=== PATIENT | female | born 1970 | race Caucasian/White ===

== ENCOUNTER 2020-04-20 17:06 | Emergency (ER) | payer BC, OTHER ==
[~2020-04-20] VITALS: Ht 165.1 cm; Wt 83.6 kg
[2020-04-20] MEDS ORDERED: METO1TAB7 (17:41)
[2020-04-20] MEDS ORDERED: JANU50TA8 (17:41)
[2020-04-20] MEDS ORDERED: LISI-538 (17:42)
[2020-04-20] MEDS ORDERED: TOPI50TA9 (17:42)
[2020-04-20] MEDS ORDERED: BUPR150T5 (17:42)
[2020-04-20] MEDS ORDERED: SERT25TA21 (17:42)
[2020-04-20] MEDS ORDERED: ONDANSETRON 4MG/2ML VIAL IV ONE (17:45)
[2020-04-20] MEDS ORDERED: MORPHINE 2 MG/ML 1ML VIAL (J2270) IV PRN (17:45)
[2020-04-20 17:53] LABS: BASO % 0.2 % (0.0-1.0); EOS # 0.1 10^3/uL (0.0-0.5); EOS % 1.2 % (0.0-3.0); HEMATOCRIT 39.7 % (36.0-47.0); HEMOGLOBIN 12.7 g/dl (12.0-15.5); LYMPH # 0.6 10^3/uL (1.5-5.0); LYMPH % 7.2 % (24.0-44.0); MEAN CORPUSCULAR HEMOGLOBIN 29.1 pg (27.0-33.0); MEAN CORPUSCULAR VOLUME 91.1 fl (80.0-96.0); MONO # 0.4 10^3/uL (0.0-0.8); MONO % 4.8 % (0.0-5.0); NEUTROPHILS # 7.6 10^3/uL (1.5-8.5); NEUTROPHILS % 85.8 % (36.0-66.0); PLATELET COUNT, AUTOMATED 286 10^3/uL (150-450); RED BLOOD COUNT 4.36 10^6/uL (4.00-5.40); WHITE BLOOD COUNT 8.9 10^3/uL (4.0-10.0)
[2020-04-20] MEDS ORDERED: ISOVUE-370 76% 100ML VIAL As Ordered ONE (18:00)
[2020-04-20] MEDS ORDERED: METOCLOPRAMIDE INJ 10MG/2ML VIAL (J2765 PER 1) IV ONE (18:45)
[2020-04-20] MEDS ORDERED: KETOROLAC 30 MG/ML 1ML VIAL IV ONE (19:00)
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
[2020-04-20] MEDS ORDERED: METHOCARBAMOL 1,000 MG/10 ML VIAL (J2800) IV ONE (19:30)
[2020-04-20] MEDS ORDERED: ROBA750T4 PO (19:35)
[2020-04-20 19:41] LABS: APPEARANCE, URINE HAZY (CLEAR); BACTERIA, URINE AUTO NEGATIVE (NEGATIVE); BILIRUBIN, URINE AUTO NEGATIVE (NEGATIVE); BLOOD, URINE BLOOD 1+ (NEGATIVE); COLOR, URINE YELLOW (YELLOW); GLUCOSE, URINE (UA) AUTO NEGATIVE (NEGATIVE); KETONE, URINE AUTO TRACE mg/dL (NEGATIVE); LEUKOCYTE ESTERASE, URINE AUTO NEGATIVE (NEGATIVE); NITRITE, URINE AUTO NEGATIVE (NEGATIVE); PROTEIN, URINE AUTO NEGATIVE (NEGATIVE); RBC, URINE AUTO 0 /HPF (0-3); SPECIFIC GRAVITY URINE AUTO 1.039 (1.002-1.035); SQUAMOUS EPITHELIAL CELL UR AU 1 /HPF (0-6); WBC, URINE AUTO 0 /HPF (0-3)
[2020-04-20 20:50] VITALS: BP 153/83
== END 2020-04-20 20:52 | disposition home or self-care (01) ==
LOC: M ED 17:06 → EDBD 17:06 → M ED 20:52
DX: M62.830 Muscle spasm of back (principal); S69.91XA Unspecified injury of right wrist, hand and finger(s), initial encounter; S32.010A Wedge compression fracture of first lumbar vertebra, initial encounter for closed fracture; V48.5XXA Car driver injured in noncollision transport accident in traffic accident, initial encounter; E11.9 Type 2 diabetes mellitus without complications; I10 Essential (primary) hypertension; M50.30 Other cervical disc degeneration, unspecified cervical region; R93.7 Abnormal findings on diagnostic imaging of other parts of musculoskeletal system; Z88.2 Allergy status to sulfonamides; Z88.6 Allergy status to analgesic agent; Z91.040 Latex allergy status; Z79.899 Other long term (current) drug therapy
CPT/HCPCS: 70450; 71260; 72125; 74177; 80047; 81001; 84702; 85025; 86850; 86900; 86901; 96374; 96375; 99284; J1885; J2270; J2405; J2765; J2800; Q9967

== ENCOUNTER → 2020-11-13 | Outpatient (CLI) | payer OTHER, BC ==
[~2020-11-13] MED LIST: BUPR150T5; JANU50TA8 PO; LINZ72CA PO; LISI20TA33; METO1TAB7 PO; MULT1TAB42 PO; OYST500C PO; ROBA750T4 PO; SERT25TA21; TOPI50TA9 PO; VITA500T37 PO
== END ==
LOC: M LABSMTC 11:08
PROVIDERS: ATTEND Anesthesiology
DX: Z01.812 Encounter for preprocedural laboratory examination (principal); Z20.822 Contact with and (suspected) exposure to COVID-19

== ENCOUNTER → 2020-11-13 | Outpatient (CLI) | payer BC ==
[2020-11-13 13:03] LABS: BASO % 0.6 % (0.0-1.0); EOS # 0.1 10^3/uL (0.0-0.5); HEMATOCRIT 41.5 % (36.0-47.0); HEMOGLOBIN 13.5 g/dl (12.0-15.5); LYMPH # 1.2 10^3/uL (1.5-5.0); LYMPH % 17.2 % (24.0-44.0); MEAN CORPUSCULAR HEMOGLOBIN 29.7 pg (27.0-33.0); MEAN CORPUSCULAR HGB CONC 32.5 g/dl (32.0-36.5); MEAN CORPUSCULAR VOLUME 91.4 fl (80.0-96.0); MONO # 0.4 10^3/uL (0.0-0.8); MONO % 5.8 % (2.0-8.0); NEUTROPHILS # 5.1 10^3/uL (1.5-8.5); NEUTROPHILS % 74.1 % (36.0-66.0); PLATELET COUNT, AUTOMATED 265 10^3/uL (150-450); RED BLOOD COUNT 4.54 10^6/uL (4.00-5.40); WHITE BLOOD COUNT 6.9 10^3/uL (4.0-10.0)
[2020-11-13 13:18] LABS: HEMOGLOBIN A1c 7.2 %
[2020-11-13 13:41] LABS: ALT/SGPT 31 U/L (12-78); BILIRUBIN,TOTAL 0.4 MG/DL (0.2-1.0); BLOOD UREA NITROGEN 12 MG/DL (7-18); CALCIUM LEVEL 9.3 MG/DL (8.5-10.1); CARBON DIOXIDE LEVEL 30 MEQ/L (21-32); CHLORIDE LEVEL 106 MEQ/L (98-107); CHOLESTEROL LEVEL 261 MG/DL (<200); CHOLESTEROL RISK RATIO 4.578 (<5); CREATININE FOR GFR 0.74 MG/DL (0.55-1.30); FERRITIN 26 NG/ML (8-252); GLOMERULAR FILTRATION RATE > 60.0 (>51); GLUCOSE, FASTING 126 MG/DL (70-100); HDL CHOLESTEROL 57 MG/DL (>40); IRON (FE) 70 UG/DL (50-170); LDL CHOLESTEROL 171 MG/DL (<100); NON-HDL-C 204 MG/DL; POTASSIUM SERUM 4.4 MEQ/L (3.5-5.1); SODIUM LEVEL 141 MEQ/L (136-145); THYROID STIMULATING HORMONE 0.936 uIU/ML (0.358-3.740); TOTAL IRON BINDING CAPACITY 411 UG/DL (250-450); TRIGLYCERIDES LEVEL 164 MG/DL (<150)
== END ==
LOC: M LAB 12:22
PROVIDERS: ATTEND Nurse Practitioner Family
DX: I10 Essential (primary) hypertension (principal)

== ENCOUNTER 2020-11-18 06:53 | Day surgery (SDC) | payer BC ==
[~2020-11-18] VITALS: Ht 165.1 cm; Wt 86.6 kg
[~2020-11-18 06:53] MED LIST changes: +NS 1,000 ML IV SCH
[2020-11-18] MEDS ORDERED: fentaNYL 100 MCG/2 ML INJECTION (J3010) As Ordered ONE (07:23)
[2020-11-18] MEDS ORDERED: ONDANSETRON 4MG/2ML VIAL As Ordered ONE (07:23)
[2020-11-18] MEDS ORDERED: propofoL 200 MG/20 ML VIAL As Ordered ONE (07:23)
[2020-11-18] MEDS ORDERED: LIDOCAINE 2% 100MG/5ML SDV (FOR ANES.) As Ordered ONE (07:23)
--- NOTE | 2020-11-18 07:45 | ROOR ---
Patient Name: Johnna Alejandro Procedure Date: 11/18/2020 7:24 AM Date of : 1970 Age: 50 Room: [facility] Gender: Female Note Status: Finalized Procedure: Upper GI endoscopy Indications: Dyspepsia, Heartburn Providers: Miguelito Bermeo MD Referring MD: Berta Hardin ([place]) PAD TUFTER Requesting Provider: Medicines: Monitored Anesthesia Care Complications: No immediate complications. Procedure: Pre-Anesthesia Assessment: - The heart rate, respiratory rate, oxygen saturations, blood pressure, adequacy of pulmonary ventilation, and response to care were monitored throughout the procedure. The Endoscope was introduced through the mouth, and advanced to the jejunum. The upper GI endoscopy was accomplished without difficulty. The patient tolerated the procedure well. Findings: The examined esophagus was normal. 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 The gastrojejunal anastomosis was characterized by healthy appearing mucosa. Biopsies were taken with a cold forceps for Helicobacter pylori testing. The examined jejunum was normal. Biopsies for histology were taken with a cold forceps for evaluation of celiac disease. Impression: - Normal esophagus. - Kee-en-Y gastrojejunostomy with gastrojejunal anastomosis characterized by healthy appearing mucosa. Biopsied. - Normal examined jejunum. Biopsied. Recommendation: - Observe patient's clinical course. - Follow an antireflux regimen. - Telephone endoscopist for pathology results in 2 weeks. Procedure Code(s): --- Professional --- 30528, Esophagogastroduodenoscopy, flexible, transoral; with biopsy, single or multiple Diagnosis Code(s): --- Professional --- Z98.0, Intestinal bypass and anastomosis status R10.13, Epigastric pain R12, Heartburn CPT copyright 2019 [employer]. All rights reserved. The codes documented in this report are preliminary and upon splunk architect review may be revised to meet current compliance requirements. Miguelito Bermeo MD Miguelito Bermeo MD 11/18/2020 7:45:16 AM Electronically signed by Miguelito Bermeo MD Number of Addenda: 0 Note Initiated On: 11/18/2020 7:24 AM Estimated Blood Loss: Estimated blood loss: none.
--- NOTE | 2020-11-18 08:01 | ROOR ---
Patient Name: Johnna Alejandro Procedure Date: 11/18/2020 7:24 AM Date of : 1970 Age: 50 Room: [facility] Gender: Female Note Status: Finalized Procedure: Colonoscopy Indications: High risk colon cancer surveillance: Personal history of colonic polyps, Incidental abdominal pain noted, Incidental change in bowel habits noted Providers: Miguelito Bermeo MD Referring MD: Berta Hardin ([place]), COAT OPERATOR INSULATOR Requesting Provider: Medicines: Monitored Anesthesia Care Complications: No immediate complications. Procedure: Pre-Anesthesia Assessment: - The heart rate, respiratory rate, oxygen saturations, blood pressure, adequacy of pulmonary ventilation, and response to care were monitored throughout the procedure. The Colonoscope was introduced through the anus and advanced to 10 cm into the ileum. The colonoscopy was performed without difficulty. The patient tolerated the procedure well. The quality of the bowel preparation was good. Findings: The perianal and digital rectal examinations were normal. A 5 mm polyp was found in the sigmoid colon. The polyp was sessile. The polyp was removed with a cold snare. Resection and retrieval were complete. Retroflexion in the right colon was performed. The exam was otherwise normal throughout the examined colon. The terminal ileum appeared normal. Biopsies for histology were taken with a cold forceps from the entire colon for evaluation of microscopic colitis. Impression: - One 5 mm polyp in the sigmoid colon, removed with a cold snare. Resected and retrieved. - The colon and examined portion of the ileum are otherwise normal. - Biopsies were taken with a cold forceps from the entire colon for evaluation of microscopic colitis. Recommendation: - Telephone endoscopist for pathology results in 2 weeks. - Repeat colonoscopy in 5 years for surveillance. Procedure Code(s): --- Professional --- 84956, Colonoscopy, flexible; with removal of tumor(s), polyp(s), or other lesion(s) by snare technique 67506, 59, Colonoscopy, flexible; with biopsy, single or multiple Diagnosis Code(s): --- Professional --- K63.5, Polyp of colon Z86.010, Personal history of colonic polyps CPT copyright 2019 [employer]. All rights reserved. The codes documented in this report are preliminary and upon outpatient coder review may be revised to meet current compliance requirements. Miguelito Bermeo MD Miguelito Bermeo MD 11/18/2020 8:01:34 AM Electronically signed by Miguelito Bermeo MD Number of Addenda: 0 Note Initiated On: 11/18/2020 7:24 AM Estimated Blood Loss: Estimated blood loss: none.
[2020-11-18 08:20] VITALS: BP 155/85
== END 2020-11-18 08:35 | disposition home or self-care (01) ==
LOC: M OPP 06:53
PROVIDERS: ATTEND Internal Medicine Gastroenterology
DX: Z12.11 Encounter for screening for malignant neoplasm of colon (principal); Z86.010 Personal history of colon polyps; K63.5 Polyp of colon; Z98.0 Intestinal bypass and anastomosis status; R12 Heartburn; E11.9 Type 2 diabetes mellitus without complications; Z79.84 Long term (current) use of oral hypoglycemic drugs; Z79.899 Other long term (current) drug therapy; Z88.2 Allergy status to sulfonamides; Z88.5 Allergy status to narcotic agent; Z91.040 Latex allergy status
CPT/HCPCS: 43239; 45380; 45385; 88305; J2405; J3010

== ENCOUNTER → 2022-02-23 | Outpatient (CLI) | payer BC ==
[~2022-02-23] MED LIST changes: +BUPR-71; -BUPR150T5; -NS 1,000 ML IV SCH
[2022-02-23 15:13] LABS: ALBUMIN 4.1 GM/DL (3.2-5.2); BLOOD UREA NITROGEN 15 MG/DL (7-18); CALCIUM LEVEL 9.3 MG/DL (8.5-10.1); CARBON DIOXIDE LEVEL 26 MEQ/L (21-32); CHLORIDE LEVEL 105 MEQ/L (98-107); CREATININE FOR GFR 0.87 MG/DL (0.55-1.30); GLOMERULAR FILTRATION RATE > 60.0 (>51); GLUCOSE, FASTING 175 MG/DL (70-100); NT-PRO BNP 166 PG/ML (<125); PHOSPHORUS LEVEL 4.1 MG/DL (2.5-4.9); POTASSIUM SERUM 4.4 MEQ/L (3.5-5.1); SODIUM LEVEL 138 MEQ/L (136-145); THYROID STIMULATING HORMONE 0.703 uIU/ML (0.358-3.740)
== END ==
LOC: M LAB 13:25
PROVIDERS: ATTEND Internal Medicine Cardiovascular Disease
DX: I11.9 Hypertensive heart disease without heart failure (principal); R06.02 Shortness of breath; I25.2 Old myocardial infarction

== ENCOUNTER → 2022-06-22 | Outpatient (CLI) | payer BC ==
[~2022-06-22] MED LIST changes: +GLUCAGON INJ 1MG VIAL As Ordered ONE; +ISOVUE-370 76% 100ML VIAL As Ordered ONE; +NEULUMEX 0.1% SUSPENSION 450ML BOTTLE (FORMERLY VOLUMEN) As Ordered ONE
[2022-06-22 10:40] LABS: BLOOD UREA NITROGEN 13 MG/DL (9-23); CREATININE FOR GFR 0.72 MG/DL (0.55-1.30); GLOMERULAR FILTRATION RATE > 60.0 (>51)
== END ==
LOC: M RAD 09:16
PROVIDERS: ATTEND Physician Assistant Medical
DX: R10.10 Upper abdominal pain, unspecified (principal); R63.4 Abnormal weight loss; R68.81 Early satiety
CPT/HCPCS: 36415; 74177; 82565; 84520; J1610

== ENCOUNTER → 2022-07-14 | Outpatient (CLI) | payer BC ==
[~2022-07-14] MED LIST changes: +CARV6.25 PO; -GLUCAGON INJ 1MG VIAL As Ordered ONE; -ISOVUE-370 76% 100ML VIAL As Ordered ONE; +LISI10TA22 PO; -NEULUMEX 0.1% SUSPENSION 450ML BOTTLE (FORMERLY VOLUMEN) As Ordered ONE; +OMEP-173 PO; +ROSU20TA5 PO; +SUCR1ORA2 PO; +TOPI-254 PO; -TOPI50TA9 PO; +TRUL10IN SC; +VITMTA PO
== END ==
LOC: M LABSMTC 11:23
PROVIDERS: ATTEND Anesthesiology
DX: Z20.822 Contact with and (suspected) exposure to COVID-19 (principal)

== ENCOUNTER 2022-07-19 08:18 | Day surgery (SDC) | payer BC ==
[~2022-07-19] VITALS: Ht 165.1 cm; Wt 78.9 kg
[~2022-07-19 08:18] MED LIST changes: +LIDOCAINE 2% 100MG/5ML SDV (FOR ANES.) As Ordered ONE; +NS 1,000 ML IV ONE; +fentaNYL 100 MCG/2 ML INJECTION As Ordered ONE; +propofoL 200 MG/20 ML VIAL As Ordered ONE
[2022-07-19 10:45] VITALS: BP 156/78
== END 2022-07-19 10:54 | disposition home or self-care (01) ==
LOC: M OPP 08:18
PROVIDERS: ATTEND Internal Medicine Gastroenterology
DX: K52.89 Other specified noninfective gastroenteritis and colitis (principal); R93.3 Abnormal findings on diagnostic imaging of other parts of digestive tract; Z98.0 Intestinal bypass and anastomosis status; R10.13 Epigastric pain; G43.909 Migraine, unspecified, not intractable, without status migrainosus; F41.9 Anxiety disorder, unspecified; I51.7 Cardiomegaly; I20.9 Angina pectoris, unspecified; E11.9 Type 2 diabetes mellitus without complications; Z79.02 Long term (current) use of antithrombotics/antiplatelets; Z79.84 Long term (current) use of oral hypoglycemic drugs; Z79.899 Other long term (current) drug therapy; Z88.2 Allergy status to sulfonamides; Z88.5 Allergy status to narcotic agent; Z91.040 Latex allergy status
CPT/HCPCS: 43235; 45380; 88305; J3010

== ENCOUNTER → 2024-01-18 | Outpatient (CLI) | payer BC ==
[~2024-01-18] MED LIST changes: -LIDOCAINE 2% 100MG/5ML SDV (FOR ANES.) As Ordered ONE; -NS 1,000 ML IV ONE; -ROSU20TA5 PO; +ROSU20TA86 PO; +TOPI-21 PO; -TOPI-254 PO; -fentaNYL 100 MCG/2 ML INJECTION As Ordered ONE; -propofoL 200 MG/20 ML VIAL As Ordered ONE
== END ==
LOC: M EKG 09:06
PROVIDERS: ATTEND Internal Medicine Cardiovascular Disease
DX: R55 Syncope and collapse (principal); R00.2 Palpitations

== ENCOUNTER → 2024-12-20 | Outpatient (CLI) | payer BC ==
[~2024-12-20] MED LIST changes: +PROHANCE 279.3MG/ML 15ML VIAL ONE; -SUCR1ORA2 PO; +SUCR1ORA20 PO
== END ==
LOC: M PLAIMG 12:33
PROVIDERS: ATTEND Neurological Surgery
DX: M62.81 Muscle weakness (generalized) (principal)
CPT/HCPCS: 71552; A9576

== ENCOUNTER → 2025-03-26 | Outpatient (REF) | payer BC ==
[~2025-03-26] MED LIST changes: +BIOT1CAP2 PO; +CELE1CAP4 PO; +LINZ145C PO; -PROHANCE 279.3MG/ML 15ML VIAL ONE; +SEMA2PEN SQ; +THERTAB52 PO
[2025-03-29 11:37] LABS: HPV APTIMA Not Detected (Not Detected)
== END ==
LOC: M PLALAB 09:26
PROVIDERS: ATTEND Physician Assistant
DX: Z01.419 Encounter for gynecological examination (general) (routine) without abnormal findings (principal)
CPT/HCPCS: 87624; G0123

== ENCOUNTER → 2025-04-16 | Outpatient (CLI) | payer BC | LOC: M EKG 07:54 | PROVIDERS: ATTEND Anesthesiology | DX: Z09 Encounter for follow-up examination after completed treatment for conditions other than malignant neoplasm (principal) ==

== ENCOUNTER → 2025-04-16 | Outpatient (CLI) | payer BC | LOC: M RAD 07:11 | PROVIDERS: ATTEND Physician Assistant | DX: N95.0 Postmenopausal bleeding (principal) ==